=== PATIENT | male | born 1960 | race Caucasian/White ===

== ENCOUNTER 2024-09-04 07:57 | Outpatient (CLI) | payer BC, SELFPAY ==
[2024-09-04 08:28] LABS: Chloride* 104 mmol/L (96-114); Potassium* 4.3 mmol/L (3.6-5.1); Sodium* 139 mmol/L (135-149)
[2024-09-04 08:31] LABS: Anion Gap 7 mEq/L (7-15); Blood Urea Nitrogen* 23 mg/dL (7-30); Calcium* 9.2 mg/dL (8.4-10.6); Carbon Dioxide* 28 mmol/L (20-32); Cholesterol* 180 mg/dL (90-199); Creatinine* 1.2 mg/dL (0.5-1.5); Estimated Glomerular Filt Rate 68 ml/min; Glucose* 102 mg/dL (60-115); Triglycerides* 263 mg/dL (40-149)
[2024-09-04 08:32] LABS: HDL Cholesterol* 28 mg/dL (>=40); LDL Cholesterol Calculated 99 mg/dL (<100)
[2024-09-04 08:33] LABS: Hematocrit 40.3 % (37.0-53.0); Hemoglobin* 13.9 gm/dL (13.5-17.5); Mean Corpuscular HGB Conc 35 gm/dL (32-36); Mean Corpuscular Hemoglobin 30 pg (26-34); Mean Corpuscular Volume 87 fL (80-100); Platelet Count* 152 K/uL (140-440); Red Blood Count 4.62 m/uL (4.30-5.90); White Blood Count* 8.65 K/uL (4.50-11.00)
[2024-09-04 08:40] LABS: Slide Review Reflex No
[2024-09-05 14:45] LABS: PSA Screen* 0.29 ng/mL (0.10-4.00)
== END 2024-09-04 07:58 | disposition home or self-care (01) ==
PROVIDERS: PCP Family Medicine; Visit Provider Family Medicine
DX: E78.1 Pure hyperglyceridemia (principal); C85.9A Non-Hodgkin lymphoma, unspecified, in remission; Z13.6 Encounter for screening for cardiovascular disorders; Z12.5 Encounter for screening for malignant neoplasm of prostate
CPT/HCPCS: 36415; 80048; 80061; 85027; G0103

== ENCOUNTER 2024-09-22 08:23 | Outpatient (CLI) | payer BC, SELFPAY ==
--- NOTE | 2024-09-22 10:01 | P.ANES_ITS ---
Anesthesia Charges Start Date/Time Anesthesia Start Date: 09/22/24 Anesthesia Start Time: 09:35 Stop Date/Time Anesthesia Stop Date: 09/22/24 Anesthesia Stop Time: 09:55 Coding CPT Codes CPT Codes: ELEANOR LWR INTST NDSC NOS - [id number] ([id number]) P2 - PATIENT W/MILD SYST DISEASE, QX - BLIND INSTALLER SVC W/ MD MED DIRECTION, QK - BOILER TECHNICIAN 2-4 CNCRNT ANES PROC
--- NOTE | 2024-09-22 10:01 | W.ANESCHARGE ---
Anesthesia Charges Start Date/Time Anesthesia Start Date: 09/22/24 Anesthesia Start Time: 09:35 Stop Date/Time Anesthesia Stop Date: 09/22/24 Anesthesia Stop Time: 09:55 Coding CPT Codes CPT Codes: ELEANOR LWR INTST NDSC NOS - [id number] ([id number]) P2 - PATIENT W/MILD SYST DISEASE, QX - SUPERVISOR HOME ECONOMICS SVC W/ MD MED DIRECTION, QK - LEVELER 2-4 CNCRNT ANES PROC
--- NOTE | 2024-09-22 10:10 | P.ANES_ITS ---
Anesthesia Charges Start Date/Time Anesthesia Start Date: 09/22/24 Anesthesia Start Time: 09:35 Stop Date/Time Anesthesia Stop Date: 09/22/24 Anesthesia Stop Time: 09:55 Coding CPT Codes CPT Codes: ELEANOR LWR INTST NDSC NOS - [id number] ([id number]) QK - MATTRESS STRIPPER 2-4 CNCRNT ANETeresa PROC, QX - CUPOLA MAN SVC W/ MD MED DIRECTION, P2 - PATIENT W/MILD SYST DISEASE
--- NOTE | 2024-09-22 10:10 | W.ANESCHARGE ---
Anesthesia Charges Start Date/Time Anesthesia Start Date: 09/22/24 Anesthesia Start Time: 09:35 Stop Date/Time Anesthesia Stop Date: 09/22/24 Anesthesia Stop Time: 09:55 Coding CPT Codes CPT Codes: ELEANOR LWR INTST NDSC NOS - [id number] ([id number]) QK - HYDROPONICS GROWER 2-4 CNCRNT ANETeresa PROC, QX - APPRENTICE JOCKEY SVC W/ MD MED DIRECTION, P2 - PATIENT W/MILD SYST DISEASE
== END 2024-09-22 08:24 | disposition home or self-care (01) ==
LOC: OP CLINIC 08:24
PROVIDERS: PCP Family Medicine; Visit Provider Internal Medicine
DX: Z12.11 Encounter for screening for malignant neoplasm of colon (principal); D12.5 Benign neoplasm of sigmoid colon; Z86.0109 Personal history of other colon polyps
CPT/HCPCS: 00811; 00812; 45380; 88305; J2704